=== PATIENT | female | born 2005 | race Caucasian/White ===

== ENCOUNTER 2024-08-26 16:50 | Observation (INO) | payer MEDICAID, SELFPAY ==
[2024-08-26 17:06] VITALS: BP 110/58; PULSE 79
[2024-08-26 17:21] VITALS: BP 110/58; PULSE 79; RESP 18; RESP 99; TEMP 37.1; BMI 39.1
[2024-08-26 17:43] LABS: Collection Type, Urine Clean Catch
[2024-08-26 17:54] LABS: Bacteria,Urine Rare; Bilirubin,Urine Negative (Negative); Blood,Urine Negative (Negative); Color,Urine Yellow (Lt Yel-Yel); Glucose, Urine Negative (Negative); Hyaline Casts,Urine < 1 /hpf (0-1); Ketones,Urine Trace (Negative); Leukocyte Esterase,Urine Positive (Negative); Nitrite,Urine Negative (Negative); Protein,Urine 1+ (Neg - Trace); RBC,Urine 3 /hpf (0-3); Specific Gravity,Urine 1.035 (1.001-1.035); Squamous Epithelial Cell,Urine 9 /hpf (0-5); Urobilinogen,Urine Negative mg/dL (0.0-1.0); WBC,Urine 51 /hpf (0-5)
[2024-08-26 17:55] LABS: Clarity,Urine Hazy (Clear/Hazy)
== END 2024-08-26 18:25 | disposition home or self-care (01) ==
PROVIDERS: Admitting Provider Obstetrics & Gynecology; PCP Family Medicine; Visit Provider Obstetrics & Gynecology
DX: O26.893 Other specified pregnancy related conditions, third trimester (principal); R10.2 Pelvic and perineal pain; Z3A.30 30 weeks gestation of pregnancy
CPT/HCPCS: 59025; 59899; 81001

== ENCOUNTER 2024-10-26 20:12 | Observation (INO) | payer MEDICAID, SELFPAY ==
[2024-10-26 20:35] VITALS: BP 123/66; PULSE 98; RESP 18; RESP 98; TEMP 36.8
[2024-10-26 20:36] VITALS: BP 123/66; PULSE 98
[2024-10-26 20:44] VITALS: TEMP 36.8; BMI 41.2
== END 2024-10-26 21:02 | disposition home or self-care (01) ==
PROVIDERS: Admitting Provider Obstetrics & Gynecology; Visit Provider Obstetrics & Gynecology
DX: O26.893 Other specified pregnancy related conditions, third trimester (principal); Z3A.38 38 weeks gestation of pregnancy; M54.50 Low back pain, unspecified
CPT/HCPCS: 59899

== ENCOUNTER 2024-10-28 17:05 | Observation (INO) | payer MEDICAID, SELFPAY ==
[2024-10-28 17:23] VITALS: BP 109/67; PULSE 107
[2024-10-28 17:38] VITALS: BP 109/67; PULSE 105; RESP 16; RESP 99; TEMP 36.7; BMI 41.3
== END 2024-10-28 18:02 | disposition home or self-care (01) ==
PROVIDERS: Admitting Provider Student in an Organized Health Care Education/Training Program; Visit Provider Student in an Organized Health Care Education/Training Program
DX: Z34.83 Encounter for supervision of other normal pregnancy, third trimester (principal); Z3A.39 39 weeks gestation of pregnancy
CPT/HCPCS: 59025; 59899

== ENCOUNTER 2024-10-29 14:09 | Outpatient (RCR) | payer MEDICAID, SELFPAY ==
--- NOTE | 2024-10-15 14:25 | XR_ITS ---
Examination: Biophysical profile, ultrasound Date and time of exam: October 15, 2024 1429 hours INDICATIONS: Diagnosis maternal obesity Technique: Multiple transabdominal sonographic images of the pelvis abdomen obtained. Attention is directed to the breathing movement, gross body movement, amniotic fluid volume and tone. Findings: Amniotic fluid index 15.4 cm Total biophysical profile is 8 of 8. breathing movement is 2. Gross body movement is 2. tone is 2. Qualitative amniotic fluid volume is 2 Impression: Biophysical profile is 8 of 8.
[2024-10-15 14:47] VITALS: BP 95/59; PULSE 89; RESP 18; TEMP 36.7
--- NOTE | 2024-10-22 14:10 | XR_ITS ---
Examination: Biophysical profile, ultrasound Date and time of exam: October 22, 2024 1428 hrs. Indications: Diagnosis maternal obesity Technique: Multiple transabdominal sonographic images of the pelvis abdomen obtained. Attention is directed to the breathing movement, gross body movement, amniotic fluid volume and tone. Findings: Amniotic fluid index 12.7 cm Total biophysical profile is 8 of 8. breathing movement is 2. Gross body movement is 2. tone is 2. Qualitative amniotic fluid volume is 2 Impression: Biophysical profile is 8 of 8.
[2024-10-22 15:06] VITALS: BP 111/64; PULSE 75; RESP 18; TEMP 36.7
[2024-10-22 15:35] VITALS: BP 111/64; PULSE 75; RESP 18; TEMP 36.7
--- NOTE | 2024-10-29 14:17 | XR_ITS ---
Examination: Biophysical profile, ultrasound Date and time of exam: October 29, 2024 1436 hours INDICATIONS: Diagnosis maternal obesity Technique: Multiple transabdominal sonographic images of the pelvis abdomen obtained. Attention is directed to the breathing movement, gross body movement, amniotic fluid volume and tone. Findings: Amniotic fluid index 13.8 cm Total biophysical profile is 8 of 8. breathing movement is 2. Gross body movement is 2. tone is 2. Qualitative amniotic fluid volume is 2 Impression: Biophysical profile is 8 of 8.
[2024-10-29 15:30] VITALS: BP 113/64; PULSE 96; RESP 16; TEMP 36.7
== END 2024-10-29 23:59 | disposition home or self-care (01) ==
LOC: S4S1 14:09
PROVIDERS: Referring Provider Nurse Practitioner Women's Health; Visit Provider Nurse Practitioner Women's Health
DX: O99.213 Obesity complicating pregnancy, third trimester (principal); E66.9 Obesity, unspecified; Z3A.39 39 weeks gestation of pregnancy
CPT/HCPCS: 59025; 76819; J2795; J3010

== ENCOUNTER 2024-10-30 22:03 | Inpatient (IN) | payer MEDICAID, SELFPAY ==
[2024-10-30 22:20] VITALS: TEMP 36.6
[2024-10-30 22:34] VITALS: BP 122/63; PULSE 103
--- NOTE | 2024-10-30 22:37 | PD.LDHP ---
Documentation for date of: 10/30/24 OB Labor/Induct. HPI History of Present Illness Chief complaint: 19 y/o 39w 2d presents to L&D for IOL due to BMI : 2 Para: 1 Term pregnancies: 1 pregnancies: 0 Living children: 1 History of Abortions: Spontaneous and Elective: 0 History of Vaginal deliveries: 1 History of sections: No History of : No ANGELA: 11/04/24 Gestational Age (weeks): 39 Gestational Age (days): 2 Indication for induction: medical complication (Obesity BMI 41) History of present illness: 19 y/o 39w 2d presents to L&D for IOL due to BMI. has been complicated by obesity with BMI of 41. GBS is neg. Membranes intact, SVE 2/60/-3 vertex, EFW 3600g. History of Present Dating criteria: based on LMP only Adequate Care: Yes Ultrasounds: normal 1st trimester US and normal mid trimester US Obstetrical complications: other (Obesity) Labs Maternal Blood Type: O Pos Labs: Negative: RPR, Hepatitis B, Rubella Titre, HIV, Chlamydia, Gonorrhea and Group Beta Strep and Unknown: Herpes Type 1, Herpes Type 2 and Covid-19 Review of Systems Review of Systems Systems Reviewed: All systems reviewed, normal except as documented Past Medical History Surgical History SURGICAL: Negative Section Meds Home Medications and Allergies Allergies Allergy/AdvReac Type Severity Reaction Status Date / Time bee venom protein (honey bee) Allergy Severe Swelling Verified 10/30/24 22:51 of Lip/Tongue/Throat OB Exam Physical Exam Vital signs: Temp Pulse BP 97.8 F 103 H 122/63 10/30/24 22:20 10/30/24 22:34 10/30/24 22:34 Constitutional Constitutional: no acute distress Routine HEENT Exam Head: Present normocephalic and atraumatic Eye: Present EOMI, PERRL and normal accommodation ENT: Present mucous membranes moist Routine Neck Exam Neck: Present full ROM Routine Respiratory Exam Respiratory: Absent respiratory distress Routine Cardiovascular Exam Cardiovascular: Present RRR Routine Abdominal Exam Abdominal: Present soft Comments: Gravid uterus EFW 3600g Routine Exam External: Present normal urethra appearance; Absent lesions Detailed Labor and Delivery Exam Dilation (cm): 2 Effacement (%): 60 Cervix position: posterior station: -3 Consistency: medium Presentation: Vertex Membranes: intact Baseline heart rate: 130 monitor accelerations: 15x15 monitor decelerations: None senior living variability: Moderate (11-25) Contraction frequency (min): none Routine Extremities Exam Extremities: Present full ROM Routine Back/Spine/Pelvis Exam Back/Spine: Present full ROM Routine Skin Exam Skin: Present intact, dry and warm Routine Neurological Exam Neurological: Present alert, oriented X3 and CN II-XII intact Routine Psychiatric Exam Psychiatric: Present normal affect and normal thought process OB Results Labs 10/30/24 22:39 OB Assessment & Plan Assessment and Plan (1) Encounter for induction of labor: Status: Acute (2) Morbid obesity with BMI of 40.0-44.9, adult: Status: Acute (3) with 39 completed weeks gestation: Status: Acute (4) Rubella non-immune status, antepartum: Status: Acute Additional Plan Induction method: per misoprostol protocol Plan: induction, anticipate NVD and consult MD reed Additional Plan Comment: Routine admit orders Ok to eat regular diet until active labor Ordered US to confirm presentation and EFW Intermittent monitor ok early in labor Consult anesthesia for an epidural Plan to give MMR in
[2024-10-30 23:08] LABS: Basophils % (Auto) 0 % (0-2.5); Eosinophils # (Auto) 0.1 Thou/mm3 (0.0-0.5); Eosinophils % (Auto) 1 % (0-10); Hematocrit 35.5 % (36.0-46.0); Immature Granulocytes % (Auto) 1 % (0-0); Immature Granulocytes Auto 0.05 Thou/mm3 (0.00-0.00); Lymphocytes # (Auto) 2.8 Thou/mm3 (1.0-4.8); Lymphocytes % (Auto) 26 % (10-50); Mean Corpuscular HGB Conc 33.8 g/dl (31.0-37.0); Mean Corpuscular Hemoglobin 27.7 pg (25.0-35.0); Mean Corpuscular Volume 82 fL (80-100); Monocytes # (Auto) 0.7 Thou/mm3 (0.0-0.8); Monocytes % (Auto) 6 % (0-12); Neutrophils # (Auto) 7.4 Thou/mm3 (1.8-7.7); Neutrophils % (Auto) 67 % (37-80); Nucleated Red Blood Cell % 0 /100 WBC (0); Platelet Count 185 Thou/mm3 (140-440); RDW Standard Deviation 39.8 fL (36.4-46.3); Red Blood Count 4.33 Miln/mm3 (4.00-5.20); White Blood Count 11.1 Thou/mm3 (4.5-11.0)
[2024-10-30 23:46] LABS: Syphilis Nonreactive (Nonreactive)
[2024-10-31] VITALS (200 sets, daily range): BP systolic 93–148; BP diastolic 50–109; PULSE 62–173; RESP 16–18; TEMP 36.3–36.9; O2SAT 73–100; BMI 43.5
--- NOTE | 2024-10-31 | XR_ITS ---
Examination: Complete OB ultrasound greater than 14 weeks Date and time of exam: October 31, 2024 0022 hrs. Indications: Diagnosis maternal obesity, unknown size and dates Findings: Viable intrauterine single fetus with single amniotic sac presentation cephalic Cardiac motion 126 BPM Placenta posterior grade 2 Amniotic fluid index 11.6 cm Ovaries obscured by bowel gas. Composite estimated gestational age based on BPD, head circumference, abdominal circumference, femur length is 39 weeks 2 days Estimated weight 3608.8 g. Survey of intracranial anatomy, spinal anatomy, abdominal anatomy, four-chamber heart performed with no abnormalities identified. Impression: Viable intrauterine gestation cephalic presentation.
--- NOTE | 2024-10-31 02:44 | PRELIM_ITS ---
Obstetric ultrasound. October 31, 2024 0027 hours Clinical history: EFW and presentation Comparison: No prior study is available for comparison. Findings: There is a gravid uterus with a live fetus in cephalic presentation of mean gestational age 39 weeks and 2 days (by biometry). cardiac activity is present at a heart rate of 126 beats per minute. The placenta is posterior in location. There is no evidence of placenta previa or retroplacental hemorrhage. Amniotic fluid is adequate (LYNN =11.6 cm). Estimated weight is 3608 grams+/-534 grams. Estimated due date by ultrasound is 11/05/2024. Cervical length not visualized due to empty urinary bladder. Both ovaries are not visualized due to bowel gas. Impression: Gravid uterus with a single live fetus in cephalic presentation of mean gestational age 39 weeks and 2 days. Report Electronically Signed By: Dada Ramesh 10/31/2024 2:43:30 AM [EST]
[2024-10-31] MEDS: MISOPROSTOL 50 mCg TABLET PO ×3 (03:35→12:29)
--- NOTE | 2024-10-31 08:41 | PD.LDPN ---
Documentation for date of: 10/31/24 OB Labor Progress Note Pain Control Pain control: tolerating well Comments: Pt is a 19 y/o s/p 3 years ago, IOL for elevated BMI. Signed out to me at 0700. s/p Cytotec 50 ug at 0300. Pelvic Exam Dilation (cm): 3-4 Effacement (%): 70 station: -2 Amniotic membrane status: Intact Contractions Monitor mode: External Contraction frequency: irregular Contraction intensity: Mild Status status: Category l Assessment and Plan Assessment: induction ongoing Plan OB labor note: continuous present management Comments: Second 50 ug PO cytotec given. Plan to AROM in 4 hours. Pt interested in epidural.
[2024-10-31] MEDS: RINGERS LACTATED 1000 ML 1,000 ML 100 ML IV ×3 (10:06→12:10)
--- NOTE | 2024-10-31 13:19 | PD.LDPN ---
Documentation for date of: 10/31/24 OB Labor Progress Note Pain Control Pain control: epidural Comments: Epidural not working well. Patient in a lot of pain. Declines placement by another [employer]. Pelvic Exam Dilation (cm): 8 Effacement (%): 70 station: -2 Amniotic membrane status: Bulging Comments: Declines AROM Contractions Monitor mode: External Contraction frequency: irregular Contraction intensity: Mild Status status: Category l Assessment and Plan Assessment: induction ongoing Comments: Consider Pitocin contractions space
[2024-10-31] MEDS: OXYTOCIN in NS 20 units 20 UNIT/1,000 ML BAG 125 UNIT IV (18:03)
[2024-10-31] MEDS: fentaNYL CIT INJ 50 mCg/ML AMP 2ML 100 MCG IM (18:07)
[2024-10-31] MEDS: LIDOCAINE HCL 1% 20 ML VIAL INFL (18:29)
[2024-10-31] MEDS: IBUPROFEN TAB 400 MG TABLET 800 MG PO (20:03)
[2024-10-31] MEDS: BENZO/LANO/ALOE (Dermoplast) 60 GM CAN 1 SPRAY TOP (20:03)
--- NOTE | 2024-10-31 20:06 | PD.LDDELS ---
Data (Devi) Data Hx Section: No Maternal Blood Type: O Pos Rubella Titre: Positive RPR: Non-reactive Labs: Negative: RPR, Hepatitis B, HIV, Chlamydia, Gonorrhea and Group Beta Strep : 2 Term: 1 : 0 Livin : 0 Delivery Data (Devi) Labor Data Stimulated/Augmented: Yes Induction: Yes Method: Cytotec (And AROM) ROM Date: 10/31/24 ROM Time: 16:26 Rupture Type: AROM Amniotic Fluid: Clear Delivery Data EDC: 11/04/24 EDC calculated by:: LMP/early US confirmation Delivery Date: 10/31/24 Delivery Time: 18:01 Gestational age (weeks): 39 Gestational age (days): 3 Placenta Delivery Date: 10/31/24 Placenta Delivery Time: 18:04 Length stage 2 (minutes): 2 Length stage 3 (minutes): 2 Delivered by: Dr Citlali Cunningham [employer] Supervisor at delivery: No Support person(s) at delivery: FOB, Pt mother Delivery Method Delivery: Vaginal Delivery Type: Spontaneous Presentation: Vertex Position: OA Anesthesia Type Primary Anesthesia: None Secondary Anesthesia: None Delivery Room Medications Post Delivery Medications: Narcotics (fentanyl) Post Delivery Medications N/A: No Placenta Placenta Delivery: Spontaneous Placenta Cultures Obtained: No Placenta Sent for Examination: No Cord Sample: Cord Blood Obtained Episiotomy Episiotomy: None Lacerations #1: Perineal: 1st degree Perineal repair Sutures used for repair: 4.0 Chromic EBL Estimated blood loss (ml): 400 Umbilical Cord Umbilical Vessels: 3 Nuchal Cord: None Body Cord: None Data (Devi) Data [place]'s name: Kane Gender: Male weight (lbs): 3486.991 g Additional Comments Additional comments: Patient rapidly changed from 5 cm to complete without the aid of Pitocin. She then pushed through 1 contraction delivering a liveborn male at 1801. The placenta followed within 3 minutes of delivery. Findings: liveborn male in the ANDREW presentation with no nuchal cord or meconium .Apgars were 8 and 9, weight was 7 pounds 11 ounces. The placenta was complete spontaneous and grossly normal. The patient sustained a first-degree perineal laceration repaired in a standard fashion using local anesthesia with lidocaine with 4-0 chromic. Complications were none. Condition both mom and were in stable condition in the delivery room.
[2024-11-01 02:41] LABS: Basophils % (Auto) 0 % (0-2.5); Eosinophils % (Auto) 0 % (0-10); Hematocrit 27.9 % (36.0-46.0); Hemoglobin 9.4 g/dL (12.0-16.0); Immature Granulocytes % (Auto) 0 % (0-0); Immature Granulocytes Auto 0.05 Thou/mm3 (0.00-0.00); Lymphocytes # (Auto) 2.3 Thou/mm3 (1.0-4.8); Lymphocytes % (Auto) 18 % (10-50); Mean Corpuscular HGB Conc 33.7 g/dl (31.0-37.0); Mean Corpuscular Hemoglobin 27.6 pg (25.0-35.0); Mean Corpuscular Volume 82 fL (80-100); Monocytes # (Auto) 0.9 Thou/mm3 (0.0-0.8); Monocytes % (Auto) 7 % (0-12); Neutrophils # (Auto) 9.5 Thou/mm3 (1.8-7.7); Neutrophils % (Auto) 75 % (37-80); Nucleated Red Blood Cell % 0 /100 WBC (0); Platelet Count 146 Thou/mm3 (140-440); RDW Standard Deviation 39.8 fL (36.4-46.3); White Blood Count 12.8 Thou/mm3 (4.5-11.0)
[2024-11-01 04:00] VITALS: BP 116/67; PULSE 65; RESP 16; TEMP 36.7; O2SAT 96
[2024-11-01 08:25] VITALS: BP 100/53; PULSE 68; RESP 16; TEMP 36.5; O2SAT 98
--- NOTE | 2024-11-01 09:00 | PD.LDPPPRG ---
Subjective Subjective Interval history: Patient is a 19-year-old -0-0-2 status post vaginal delivery last evening around 6 PM. Patient is tired but coping well. She has some back pain and mild cramps. She is working on breast-feeding. She states the baby is spitting up a lot and gags often. No heavy bleeding fevers chills. Father of the baby and the patient's mother are both at bedside. Exam Vital Signs Temp Pulse Resp BP Pulse Ox O2 Del Method 98.1 F 65 16 116/67 96 Room Air 11/01/24 04:00 11/01/24 04:00 11/01/24 04:00 11/01/24 04:00 11/01/24 04:00 11/01/24 04:00 Narrative Exam Patient is alert and oriented x 3 in no apparent distress. Fundus is firm nontender extremities show no cyanosis clubbing or edema. Objective Labs 11/01/24 02:30 Labs: Laboratory Results - last 24 hr 11/01/24 02:30 WBC 12.8 H RBC 3.40 L Hgb 9.4 L D Hct 27.9 L MCV 82 MCH 27.6 MCHC 33.7 RDW Std Deviation 39.8 Plt Count 146 D Neut % (Auto) 75 Lymph % (Auto) 18 Towns % (Auto) 7 Eos % (Auto) 0 Baso % (Auto) 0 Neut # (Auto) 9.5 H Lymph # (Auto) 2.3 Towns # (Auto) 0.9 H Eos # (Auto) 0.0 Baso # (Auto) 0.0 Immature Gran # (Auto) 0.05 H Absolute Nucleated RBC 0.00 Immature Gran % 0 Nucleated RBC % 0 Assessment & Plan Problem List (1) Morbid obesity with BMI of 40.0-44.9, adult: Problem details: Bridged healthy eating and moderate weight loss. Encouraged exercise. Status: Acute (2) Rubella non-immune status, antepartum: Problem details: MMR vaccine prior to discharge. Status: Acute (3) Term delivered: Problem details: Pain is controlled with ibuprofen and Tylenol. Small first-degree perineal laceration not painful to patient. Status: Acute Plan Comment Plan Comment: Probable discharge after dinner today. Patient has a 3-year-old daughter at home and would like to go home if she is stable and the baby stable after dinner. Time Spent With Patient Time: Total time spent is greater than 50% in coordination of care (as documented) at patient's floor/unit and/or counseling patient: Time with patient: less than 15 minutes
[2024-11-01 11:55] VITALS: BP 106/67; PULSE 70; RESP 20; TEMP 36.7; O2SAT 99
[2024-11-01] MEDS: IBUPROFEN TAB 400 MG TABLET 800 MG PO (12:10)
--- NOTE | 2024-11-01 16:14 | PC.SS ---
CLINICAL AUDITOR met with pt at bedside due to pt's history of Depression (PPD.) CLINICAL AUDITOR educated pt on PPD and asked if pt was currently having any signs of sadness, not wanting to be with baby, or thoughts of not loving the baby, and pt stated no. Pt lives at home with 3 year old baby girl, and NATALIIA Galvez [phone]. Pt is receiving Medical and foodstamps, does have history of PPD, no history of alcohol or substance. Pt was receiving [facility] at [facility] and [facility].
[2024-11-01 16:50] VITALS: BP 107/67; PULSE 85; RESP 16; TEMP 36.5; O2SAT 99
[2024-11-01] MEDS: ACETAMINOPHEN 325 MG TABLET 650 MG PO (16:58)
== END 2024-11-01 18:52 | disposition home or self-care (01) | DRG 560 ==
LOC: S4SX 10-31 19:37 → S4NX 10-31 20:46
PROVIDERS: Obstetrics & Gynecology; Admitting Provider Nurse Practitioner Women's Health; Visit Provider Student in an Organized Health Care Education/Training Program
DX: O99.214 Obesity complicating childbirth (principal); E66.01 Morbid (severe) obesity due to excess calories; Z37.0 Single live birth; Z3A.39 39 weeks gestation of pregnancy; O70.0 First degree perineal laceration during delivery
CPT/HCPCS: 36415; 76805; 85025; 86780; 86850; 86900; 86901; J2590; J2795; J3010; J3490; J7120; A9270

== ENCOUNTER 2025-07-14 21:18 | Emergency (ER) | payer MEDICAID, SELFPAY ==
[2025-07-14 21:20] VITALS: BMI 38.4
[2025-07-14 21:36] VITALS: BP 120/76; PULSE 89; RESP 18; TEMP 36.9; O2SAT 97
--- NOTE | 2025-07-14 21:40 | PD.EDRME ---
Rapid Medical Screening Exam E Arrival date/time: 07/14/25 21:18 20F with no significant PMH presents to ED with lower ab/pelvic pain/cramping and vaginal bleeding last week. Possible test outpatient. Denies dysuria and vaginal discharge. Blood type is O+. Chief Complaint: Abdominal Pain Vital signs: Vital Signs Temperature 98.4 F 07/14/25 21:36 Pulse Rate 89 07/14/25 21:36 Respiratory Rate 18 07/14/25 21:36 Blood Pressure 120/76 07/14/25 21:36 Pulse Oximetry (%) 97 07/14/25 21:36 Oxygen Delivery Method Room Air 07/14/25 21:36 Exam: Mild LLQ/pelvic tenderness. Clinical Impression: Ovarian cyst vs vs vaginal bleeding vs constipation vs UTI vs PID
--- NOTE | 2025-07-14 21:48 | PD.EDABDPN ---
ED Abdominal Pain RME/HPI General Chief Complaint: Abdominal Pain Stated complaint: LOWER ABD PAIN Time seen by provider: 07/14/25 21:49 Arrival date/time: 07/14/25 21:18 RME / HPI RME / HPI narrative: 07/14/25 21:18 20F with no significant PMH presents to ED with lower ab/pelvic pain/cramping and vaginal bleeding last week. Possible test outpatient. Denies dysuria and vaginal discharge. Blood type is O+. Dr. Abdi?s Main ED Evaluation: 20yo female with no significant past medical history presents to the ED for a chief complaint of pelvis pain x 1 week. No radiation or migration. Patient is not sure if she is or not. Patient states she had dysuria sometime last week, but no longer does. Denies any N/V, fever, chills, vaginal bleeding, or any other assocaited symptoms. Exam: Related Data Previous Rx's ?Medication ?Instructions ?Recorded acetaminophen 325 mg tablet 650 mg (2 x 325 mg) PO Q4H PRN See 11/01/24 Comments #60 tabs ibuprofen 400 mg tablet 800 mg (2 x 400 mg) PO X1 PRN 11/01/24 uterine cramping #60 tabs naproxen 500 mg tablet (Naprosyn) 500 mg PO BID PRN pain #20 tabs 07/14/25 Allergies Allergy/AdvReac Type Severity Reaction Status Date / Time bee venom protein (honey bee) Allergy Severe Swelling Verified 07/14/25 21:19 of Lip/Tongue/Throat Review of Systems Review of Systems Systems Reviewed: All systems reviewed, normal except as documented Past Medical History Past Medical History NEUROLOGIC: Negative Neurological Disorders CARDIAC: Negative Cardiac Disorders or Congestive Heart Failure RESPIRATORY: Positive Asthma; Negative Chronic Obstructive Pulmonary Disease (COPD) GASTROINTESTINAL: Negative Gastrointestinal Disorders or Hepatitis GENITOURINARY: Negative Genitourinary Disorders or Renal Disease MUSCULOSKELETAL: Negative Musculoskeletal Disorders ENDOCRINE: Negative Endocrine Disorders, Diabetes Mellitus Type 1 or Diabetes Mellitus Type 2 HEMATOLOGIC: Negative Blood Disorders OTHER HISTORY: Negative Hospitalization, Autoimmune Disease, Down Syndrome, Developmental Delay, Shingles, Falls, Blood Transfusions, MRSA, VRSA, Vancomycin-Resistant Enterococci, Human Immunodeficiency Virus (HIV), Chicken Pox, Measles, Mumps, Rubella ([place] Measles), Pertussis, Clostridium Difficile or Cancer Family History FAMILY HISTORY: Negative Family Psychiatric Problems, Family Respiratory Disorders, Family Cardiac Disorders, Family Gastrointestinal Problems, Family Cancer or Family Surgery Surgical History SURGICAL: Negative Section Social History SMOKING STATUS: Never smoker SECOND HAND EXPOSURE: Yes ED Exam Narrative Physical exam: Generally patient is alert obese in no obvious distress, heart regular rate and rhythm, lungs clear to auscultation equal bilaterally, abdomen soft bowel sounds present nondistended mild suprapubic abdominal tenderness without rebound. No McBurney's point tenderness. Course Quality Measures none Orders Category Date Time Status Beta HCG,Quantitative Stat Lab 07/14/25 21:48 Completed CBC Stat Lab 07/14/25 21:48 Completed CMP [Comprehensive Metabolic Panel] Stat Lab 07/14/25 21:48 Completed Urinalysis, C/S if Indicated Stat Lab 07/14/25 22:21 Completed Vital Signs Vital signs: Vital Signs Temperature 98.4 F 07/14/25 21:36 Pulse Rate 89 07/14/25 21:36 Respiratory Rate 18 07/14/25 21:36 Blood Pressure 120/76 07/14/25 21:36 Pulse Oximetry (%) 97 07/14/25 21:36 Oxygen Delivery Method Room Air 07/14/25 21:36 Abdominal Pain MDM MDM Narrative MDM Narrative:: Scribe Attestation: 07/14/25 Juhi Carvajal am scribing for and in the presence of Dr. Abdi. Patient has no fever or leukocytosis. is negative. Urinalysis is negative for infection. Patient will be given a prescription for Naprosyn to be taken as prescribed. Follow-up with her doctor for further treatment and evaluation as needed. Return to ER as needed or if condition worsens. Patient data External records reviewed:: [facility] previous records (Per chart review, patient was seen here on 05/25/23 for cough.) Clinical information provided by:: patient Social determinants that could affect healthcare access:: none Patient has the following chronic illnesses:: asthma How is presenting disease/condition affected by chronic disease/condition?: uneffected by Evaluation data The following diagnostics were reviewed and interpreted by me:: lab results Lab and/or radiology exams considered but not ordered:: none Interpretation Summary: See MDM Medications / Prescriptions Medications or Prescriptions considered but not ordered:: none Medication administrations:: none Consultations Consultation(s) initiated? (list below): No Diagnosis Differential diagnosis abdominal pain: other (See MDM) Most likely diagnosis given after review of the tests above:: see clinical impression below Admission Indicated Admission indicated?: not indicated Admission Request Was there a request for admission?: No Disposition Plan Disposition Plan: Discharge Discharge Attestation Discharge Attestation: The patient and all family members were given an opportunity to ask questions and understood the discharge instructions. Discharge instructions specifically effects, indications for sooner follow up or return to the emergency department, and the expected course of current diagnosis. Patient condition: Stable Discharge Plan Plan Patient Disposition: HOME (Self Care) Prescriptions/Referrals Prescriptions/Med Rec: New naproxen [Naprosyn] 500 mg tablet 500 mg PO BID PRN (Reason: pain) Qty: 20 0RF No Action acetaminophen 325 mg Tablet 650 mg PO Q4H PRN (Reason: See Comments) Qty: 60 0RF ibuprofen 400 mg Tablet 800 mg PO X1 PRN (Reason: uterine cramping) Qty: 60 0RF Referrals: Rafael Kamara MD [Primary Care Provider, Family Practice] - In 1 week Problem List Clinical Impression: Pelvic pain Patient/Caregiver Discharge Instructions Education Materials: ED Pelvic Pain, Unknown Cause Additional Instructions: Naprosyn as prescribed. Follow-up with your doctor. Return to ER as needed or if condition worsens. Print Language: Serbian Stand Alone Forms: Earnestine Award Info., Patient Portal Info Letter
[2025-07-14 22:01] LABS: Basophils # (Auto) 0.0 Thou/mm3 (0.0-0.2); Basophils % (Auto) 1 % (0-2.5); Eosinophils # (Auto) 0.2 Thou/mm3 (0.0-0.5); Eosinophils % (Auto) 3 % (0-10); Hematocrit 39.1 % (36.0-46.0); Hemoglobin 12.5 g/dL (12.0-16.0); Immature Granulocytes Auto 0.01 Thou/mm3 (0.00-0.00); Lymphocytes # (Auto) 2.2 Thou/mm3 (1.0-4.8); Lymphocytes % (Auto) 34 % (10-50); Mean Corpuscular HGB Conc 32.0 g/dl (31.0-37.0); Mean Corpuscular Hemoglobin 26.5 pg (25.0-35.0); Mean Corpuscular Volume 83 fL (80-100); Monocytes # (Auto) 0.6 Thou/mm3 (0.0-0.8); Monocytes % (Auto) 9 % (0-12); Neutrophils # (Auto) 3.5 Thou/mm3 (1.8-7.7); Neutrophils % (Auto) 53 % (37-80); Nucleated Red Blood Cell # 0.00 Thou/mm3 (0.00-0.00); Nucleated Red Blood Cell % 0 /100 WBC (0); Platelet Count 227 Thou/mm3 (140-440); RDW Standard Deviation 41.1 fL (36.4-46.3); Red Blood Count 4.71 Miln/mm3 (4.00-5.20); White Blood Count 6.6 Thou/mm3 (3.6-11.0)
[2025-07-14 22:24] LABS: Alanine Aminotransferase < 7 U/L (10-49); Albumin, Serum 4.5 gm/dL (3.5-5.0); Albumin/Globulin Ratio 2.1 (1.2-2.2); Alkaline Phosphatase 73 U/L (46-116); Anion Gap 9 (7-16); Aspartate Amino Transferase 14 U/L (0-34); BUN/Creatinine Ratio 7 Ratio (12-20); Beta HCG,Quantitative 1 mIU/mL (<5.0); Bilirubin,Total 0.3 mg/dL (0.3-1.2); Blood Urea Nitrogen 7 mg/dL (9-23); Calcium 9.1 mg/dL (8.3-10.6); Calcium (Corrected) 9.1 mg/dL (8.5-10.1); Carbon Dioxide 26.0 mMol/L (20.0-31.0); Chloride 111 mMol/L (98-107); Creatinine (Component) 1.0 mg/dL (0.6-1.3); Estimated Creatinine Clearance 122.1 mL/min (>60); Globulin 2.1 gm/dL (2.3-3.5); Glucose 89 mg/dL (74-106); Osmolality,Calculated 287 (275-295); Potassium 3.9 mMol/L (3.4-5.1); Sodium 146 mMol/L (136-145); Total Protein 6.6 gm/dL (5.7-8.2); eGFR > 60 See Note
[2025-07-14 22:25] LABS: Collection Type, Urine Clean Catch
[2025-07-14 22:31] LABS: Bilirubin,Urine Negative (Negative); Blood,Urine Negative (Negative); Clarity,Urine Clear (Clear/Hazy); Color,Urine Yellow (Lt Yel-Yel); Culture Indicated,Urine Not Indicated; Glucose, Urine Negative (Negative); Ketones,Urine Negative (Negative); Leukocyte Esterase,Urine Negative (Negative); Nitrite,Urine Negative (Negative); PH,Urine 6.5 (5.0-7.0); Protein,Urine 1+ (Neg - Trace); RBC,Urine 4 /hpf (0-3); Specific Gravity,Urine 1.036 (1.001-1.035); Squamous Epithelial Cell,Urine < 1 /hpf (0-5); Urobilinogen,Urine 4.0 mg/dL (0.0-1.0); WBC,Urine 2 /hpf (0-5)
[2025-07-14 23:19] VITALS: BP 123/79; PULSE 95; RESP 18; TEMP 36.7; O2SAT 98
== END 2025-07-14 23:20 | disposition home or self-care (01) ==
PROVIDERS: Physician Assistant; Emergency Provider Emergency Medicine; PCP Family Medicine
DX: N93.9 Abnormal uterine and vaginal bleeding, unspecified (principal)
CPT/HCPCS: 36415; 80053; 81001; 84702; 85025; 99282